=== PATIENT | female | born 2000 | race Caucasian/White ===

== ENCOUNTER 2024-05-05 15:14 | Emergency (ER) | payer SELFPAY ==
[~2024-05-05] VITALS: Ht 157.5 cm; Wt 51.3 kg
[2024-05-05 15:15] VITALS: BP_SYST 129; PULSE 87; RESP 19; TEMP 98.7; O2SAT 99
[2024-05-05] MEDS: LIDOCAINE 1% 10 MG/ML, 20 ML MDV INJ ONE (16:01)
[2024-05-05 16:18] VITALS: BP_SYST 129; PULSE 87; RESP 19; TEMP 98.7; O2SAT 99
[2024-05-05] MEDS ORDERED: AMOX-423 PO (16:19)
== END 2024-05-05 16:28 | disposition home or self-care (01) ==
LOC: SED 15:14
DX: S01.511A Laceration without foreign body of lip, initial encounter (principal); S01.21XA Laceration without foreign body of nose, initial encounter; S01.412A Laceration without foreign body of left cheek and temporomandibular area, initial encounter; Z79.2 Long term (current) use of antibiotics; W54.0XXA Bitten by dog, initial encounter; Y93.89 Activity, other specified; Y92.89 Other specified places as the place of occurrence of the external cause; Y99.8 Other external cause status
CPT/HCPCS: 40650; 99284; 12014; J2003

== ENCOUNTER 2024-05-07 14:58 | Emergency (ER) | payer SELFPAY ==
[~2024-05-07] VITALS: Ht 157.5 cm; Wt 52.2 kg
[~2024-05-07 14:58] MED LIST: AMOX-423 PO
[2024-05-07 15:12] VITALS: BP_SYST 107; PULSE 95; RESP 20; TEMP 98.6; O2SAT 97
[2024-05-07 17:40] VITALS: BP_SYST 107; PULSE 95; RESP 20; TEMP 98.6; O2SAT 97
== END 2024-05-07 17:42 | disposition home or self-care (01) ==
LOC: SED 14:58
DX: S01.511D Laceration without foreign body of lip, subsequent encounter (principal); S01.21XD Laceration without foreign body of nose, subsequent encounter; S01.412D Laceration without foreign body of left cheek and temporomandibular area, subsequent encounter; Z48.02 Encounter for removal of sutures; Z79.2 Long term (current) use of antibiotics; W54.0XXD Bitten by dog, subsequent encounter
CPT/HCPCS: 99283